=== PATIENT | female | born 2000 | race African-American/Black ===

== ENCOUNTER 2021-08-15 10:28 | Inpatient (IN) | payer MEDICAID, OTHER ==
[~2021-08-15] VITALS: Ht 160 cm; Wt 113.4 kg
[2021-08-15] MEDS: LORazepam 2 MG/ML VIAL IM ONE ×2 (10:36→10:38)
[2021-08-15] MEDS ORDERED: DiphenhydrAMINE HCL 50 MG/ML VIAL IM ONE (10:45)
[2021-08-15] MEDS ORDERED: HALOPERIDOL LACTATE 5 MG/ML VIAL IM ONE (10:45)
[2021-08-15 10:52] LABS: BASOPHILS % (AUTO) 0.5 % (0.0-2.0); EOSINOPHILS % (AUTO) 0.1 % (1.0-6.0); HEMATOCRIT 42.9 % (36-46); HEMOGLOBIN 14.3 g/dL (12.0-16.0); LYMPHOCYTES # (AUTO) 2.1 K/uL (1.0-4.8); LYMPHOCYTES % (AUTO) 22.8 % (22.0-44.0); MEAN CORPUSCULAR HEMOGLOBIN 27.2 pg (26.0-34.0); MEAN CORPUSCULAR HGB CONC 33.4 G/dL (31.0-37.0); MEAN CORPUSCULAR VOLUME 82 fL (80-100); MONOCYTES # (AUTO) 0.8 K/uL (0.1-1.0); MONOCYTES % (AUTO) 8.7 % (2.0-9.0); NEUTROPHILS # (AUTO) 6.2 K/uL (1.8-7.7); NEUTROPHILS % (AUTO) 67.9 % (40.0-70.0); PLATELET COUNT (AUTO) 367 K/uL (150-450); RED BLOOD CELL COUNT(AUTO) 5.25 MIL/uL (4.00-5.20); RED CELL DISTRIBUTION WIDTH 14.2 % (11.5-14.5)
[2021-08-15 11:00] LABS: ANION GAP 15 mmol/L (8-16); CALCIUM, TOTAL 9.3 mg/dL (8.8-10.5); CARBON DIOXIDE 23 mmol/L (22-29); CHLORIDE 102 mmol/L (98-107); CREATININE 1.14 mg/dL (0.60-1.30); GLOMERULAR FILTR. RATE CALC > 60 mL/min (>60); GLUCOSE,RANDOM 141 mg/dL (70-110); POTASSIUM 3.6 mmol/L (3.5-5.1); SODIUM SERUM 140 mmol/L (136-145); UREA NITROGEN, BLOOD 9 mg/dL (7-18)
[2021-08-15 11:07] LABS: SALICYLATE 0.9 mg/dL (2.8-20.0)
[2021-08-15 11:11] LABS: ALANINE AMINOTRANSFERASE 34 U/L (12-78); ALBUMIN 4.1 g/dL (3.4-5.0); ALKALINE PHOSPHATASE 139 U/L (46-116); ASPARTATE AMINOTRANSFERASE 16 U/L (15-37); BILIRUBIN,TOTAL 0.3 mg/dL (0.1-1.0); HCG,QUANTITATIVE 1 mIU/mL (0-6); TOTAL PROTEIN, SERUM 9.2 g/dL (6.4-8.2)
[2021-08-15 11:12] LABS: ACETAMINOPHEN < 2 mcg/mL (10-30)
[2021-08-15 11:37] LABS: COVID AG,FIA SOURCE NASOPHARYNGEAL
[2021-08-15] MEDS ORDERED: TUBERCULIN, PURIFIED PROTEIN DERIVATIVE 5 TU/0.1 ML SYRINGE ID ONE (11:45)
[2021-08-15] MEDS ORDERED: ACETAMINOPHEN 325 MG TABLET PO PRN (11:45)
[2021-08-15] MEDS ORDERED: CYANOCOBALAMIN 1,000 MCG/ML VIAL IM ONE (11:45)
[2021-08-15] MEDS ORDERED: MAG HYDROX/AL HYDROX/SIMETH ES 30 ML SUSPENSION UDCUP PO PRN (11:45)
[2021-08-15] MEDS ORDERED: LOPERAMIDE HCL 2 MG CAPSULE PO PRN (11:45)
[2021-08-15] MEDS ORDERED: PROMETHAZINE HCL 25 MG TABLET PO PRN (11:45)
[2021-08-15] MEDS ORDERED: MAGNESIUM HYDROXIDE SUSPENSION 30 ML UDCUP PO PRN (11:45)
[2021-08-15] MEDS ORDERED: GuaiFENesin/D-METHORPHAN [SUGAR-FREE] 200-20MG/10 ML SYRUP UDCUP PO PRN (11:45)
[2021-08-15] MEDS: LORazepam 2 MG TABLET PO PRN (16:50)
[2021-08-15] MEDS: OLANZapine 5 MG RAPDIS TABLET PO PRN (16:50)
[2021-08-15] MEDS: THIAMINE 100 MG TABLET PO SCH (17:11)
[2021-08-15 18:21] VITALS: BP 118/72
[2021-08-15] MEDS: DIVALPROEX SODIUM 500 MG ER TABLET PO SCH (20:26)
[2021-08-15] MEDS: OLANZapine 5 MG RAPDIS TABLET PO SCH (20:26)
[2021-08-15] MEDS: MELATONIN 5 MG TABLET PO SCH (20:27)
[2021-08-16 01:25] VITALS: BP 110/71
[2021-08-16 08:11] VITALS: BP 120/72
[2021-08-16] MEDS: MULTIVITAMINS WITH MINERALS, THERAPEUTIC TABLET PO SCH (09:31)
[2021-08-16] MEDS: NALTREXONE HCL 50 MG TABLET PO SCH (09:31)
[2021-08-16] MEDS: OMEGA-3/DHA/EPA/FISH OIL 1,000 MG CAPSULE PO SCH (09:31)
[2021-08-16] MEDS: THIAMINE 100 MG TABLET PO SCH ×2 (09:31→16:37)
[2021-08-16] MEDS: FOLIC ACID 1 MG TABLET PO SCH (09:31)
[2021-08-16] MEDS: LORazepam 2 MG TABLET PO PRN ×2 (09:52→18:34)
[2021-08-16] MEDS ORDERED: HALOPERIDOL LACTATE 5 MG/ML VIAL IM ONE (15:45)
[2021-08-16] MEDS ORDERED: LORazepam 2 MG/ML VIAL IM ONE (15:45)
[2021-08-16] MEDS ORDERED: DiphenhydrAMINE HCL 50 MG/ML VIAL IM ONE (15:45)
[2021-08-16 16:09] VITALS: BP 125/88
[2021-08-16] MEDS: OLANZapine 5 MG RAPDIS TABLET PO PRN (18:36)
[2021-08-16] MEDS: DIVALPROEX SODIUM 500 MG ER TABLET PO SCH (20:16)
[2021-08-16] MEDS: OLANZapine 5 MG RAPDIS TABLET PO SCH (20:16)
[2021-08-16] MEDS: MELATONIN 5 MG TABLET PO SCH (20:16)
[2021-08-17 01:43] VITALS: BP 120/76
[2021-08-17 08:06] LABS: HEMOGLOBIN A1C 5.3 % (3.8-5.6)
[2021-08-17 08:13] LABS: CHOL/HDL RATIO 3.6 (3.9-5.7); FREE T4 (FREE THYROXINE) 1.84 ng/dL (0.76-1.46); THYROID STIMULATING HORMONE 0.97 uIU/mL (0.36-3.74)
[2021-08-17] MEDS: NALTREXONE HCL 50 MG TABLET PO SCH (08:15)
[2021-08-17] MEDS: OMEGA-3/DHA/EPA/FISH OIL 1,000 MG CAPSULE PO SCH (08:19)
[2021-08-17] MEDS: MULTIVITAMINS WITH MINERALS, THERAPEUTIC TABLET PO SCH (08:19)
[2021-08-17] MEDS: LITHIUM CARBONATE 300 MG CAPSULE PO SCH ×3 (08:19→17:01)
[2021-08-17] MEDS: FOLIC ACID 1 MG TABLET PO SCH (08:20)
[2021-08-17] MEDS: THIAMINE 100 MG TABLET PO SCH ×2 (08:20→17:01)
[2021-08-17] MEDS: LORazepam 2 MG TABLET PO PRN ×2 (08:21→13:46)
[2021-08-17] MEDS: OLANZapine 5 MG RAPDIS TABLET PO PRN (08:21)
[2021-08-17 16:10] VITALS: BP 133/79
[2021-08-17] MEDS: HydrOXYzine PAMOATE 50 MG CAPSULE PO PRN (17:02)
[2021-08-17] MEDS: MELATONIN 5 MG TABLET PO SCH (20:06)
[2021-08-17] MEDS: OLANZapine 10 MG RAPDIS TABLET PO SCH (20:07)
[2021-08-17] MEDS: DIVALPROEX SODIUM 500 MG ER TABLET PO SCH (20:07)
[2021-08-18] MEDS: MULTIVITAMINS WITH MINERALS, THERAPEUTIC TABLET PO SCH (08:14)
[2021-08-18] MEDS: LORazepam 2 MG TABLET PO PRN ×3 (08:14→16:41)
[2021-08-18] MEDS: NALTREXONE HCL 50 MG TABLET PO SCH (08:15)
[2021-08-18] MEDS: OMEGA-3/DHA/EPA/FISH OIL 1,000 MG CAPSULE PO SCH (08:15)
[2021-08-18] MEDS: FOLIC ACID 1 MG TABLET PO SCH (08:15)
[2021-08-18] MEDS: LITHIUM CARBONATE 300 MG CAPSULE PO SCH ×3 (08:15→16:06)
[2021-08-18] MEDS: THIAMINE 100 MG TABLET PO SCH ×2 (08:15→16:06)
[2021-08-18 08:18] VITALS: BP 118/83
[2021-08-18] MEDS: OLANZapine 5 MG RAPDIS TABLET PO PRN (08:35)
[2021-08-18] MEDS ORDERED: PALIPERIDONE PALMITATE 234 MG/1.5 ML SYRINGE IM ONE (09:00)
[2021-08-18] MEDS ORDERED: LOPERAMIDE HCL 2 MG CAPSULE PO PRN (11:45)
[2021-08-18 16:11] VITALS: BP 130/83
[2021-08-18] MEDS: HydrOXYzine PAMOATE 50 MG CAPSULE PO PRN (18:49)
[2021-08-18] MEDS: MELATONIN 5 MG TABLET PO SCH (20:01)
[2021-08-18] MEDS: DIVALPROEX SODIUM 500 MG ER TABLET PO SCH (20:01)
[2021-08-18] MEDS: OLANZapine 10 MG RAPDIS TABLET PO SCH (20:01)
[2021-08-18] MEDS: ZOLPIDEM TARTRATE 10 MG TABLET PO PRN (22:38)
[2021-08-18 22:41] VITALS: BP 126/80
[2021-08-19 04:33] VITALS: BP 136/88
[2021-08-19] MEDS: LORazepam 2 MG TABLET PO PRN ×4 (05:00→20:18)
[2021-08-19] MEDS: OLANZapine 5 MG RAPDIS TABLET PO PRN ×2 (05:00→09:03)
[2021-08-19] MEDS: MULTIVITAMINS WITH MINERALS, THERAPEUTIC TABLET PO SCH (08:08)
[2021-08-19] MEDS: LITHIUM CARBONATE 300 MG CAPSULE PO SCH ×3 (08:08→17:35)
[2021-08-19] MEDS: NALTREXONE HCL 50 MG TABLET PO SCH (08:08)
[2021-08-19] MEDS: THIAMINE 100 MG TABLET PO SCH ×2 (08:09→17:35)
[2021-08-19] MEDS: OMEGA-3/DHA/EPA/FISH OIL 1,000 MG CAPSULE PO SCH (08:12)
[2021-08-19] MEDS: FOLIC ACID 1 MG TABLET PO SCH (08:12)
[2021-08-19 12:30] VITALS: BP 128/79
[2021-08-19 16:19] VITALS: BP 126/61
[2021-08-19] MEDS: HydrOXYzine PAMOATE 50 MG CAPSULE PO PRN (17:35)
[2021-08-19] MEDS: DIVALPROEX SODIUM 500 MG ER TABLET PO SCH (21:09)
[2021-08-19] MEDS: MELATONIN 5 MG TABLET PO SCH (21:10)
[2021-08-19] MEDS: OLANZapine 10 MG RAPDIS TABLET PO SCH (21:10)
[2021-08-20 00:28] VITALS: BP 130/76
[2021-08-20] MEDS: NALTREXONE HCL 50 MG TABLET PO SCH (08:01)
[2021-08-20] MEDS: THIAMINE 100 MG TABLET PO SCH ×2 (08:02→16:55)
[2021-08-20] MEDS: LORazepam 2 MG TABLET PO PRN ×2 (08:02→12:20)
[2021-08-20] MEDS: MULTIVITAMINS WITH MINERALS, THERAPEUTIC TABLET PO SCH (08:02)
[2021-08-20] MEDS: OMEGA-3/DHA/EPA/FISH OIL 1,000 MG CAPSULE PO SCH (08:03)
[2021-08-20] MEDS: LITHIUM CARBONATE 300 MG CAPSULE PO SCH ×3 (08:06→16:55)
[2021-08-20] MEDS: FOLIC ACID 1 MG TABLET PO SCH (09:08)
[2021-08-20] MEDS: OLANZapine 5 MG RAPDIS TABLET PO PRN (10:01)
[2021-08-20 10:22] VITALS: BP 116/76
[2021-08-20 16:12] VITALS: BP 112/61
[2021-08-20] MEDS: DIVALPROEX SODIUM 500 MG ER TABLET PO SCH (21:31)
[2021-08-20] MEDS: OLANZapine 10 MG RAPDIS TABLET PO SCH (21:31)
[2021-08-20] MEDS: MELATONIN 5 MG TABLET PO SCH (21:32)
[2021-08-20] MEDS: ZOLPIDEM TARTRATE 10 MG TABLET PO PRN (21:32)
[2021-08-21 01:00] VITALS: BP 120/62
[2021-08-21] MEDS: NALTREXONE HCL 50 MG TABLET PO SCH (08:08)
[2021-08-21] MEDS: LITHIUM CARBONATE 300 MG CAPSULE PO SCH ×3 (08:08→16:53)
[2021-08-21] MEDS: THIAMINE 100 MG TABLET PO SCH ×2 (08:08→16:53)
[2021-08-21] MEDS: FOLIC ACID 1 MG TABLET PO SCH (08:08)
[2021-08-21] MEDS: MULTIVITAMINS WITH MINERALS, THERAPEUTIC TABLET PO SCH (08:08)
[2021-08-21] MEDS: OMEGA-3/DHA/EPA/FISH OIL 1,000 MG CAPSULE PO SCH (08:08)
[2021-08-21] MEDS: LORazepam 2 MG TABLET PO PRN ×2 (08:08→16:53)
[2021-08-21] MEDS ORDERED: DiphenhydrAMINE HCL 50 MG/ML VIAL ONE (10:20)
[2021-08-21] MEDS ORDERED: LORazepam 2 MG/ML VIAL ONE (10:20)
[2021-08-21] MEDS ORDERED: DiphenhydrAMINE HCL 50 MG/ML VIAL IM ONE (10:30)
[2021-08-21] MEDS ORDERED: HALOPERIDOL LACTATE 5 MG/ML VIAL IM ONE (10:30)
[2021-08-21] MEDS ORDERED: LORazepam 2 MG/ML VIAL IM ONE (10:30)
[2021-08-21 16:08] VITALS: BP 115/62
[2021-08-21] MEDS: OLANZapine 5 MG RAPDIS TABLET PO PRN (16:53)
[2021-08-21] MEDS: DIVALPROEX SODIUM 500 MG ER TABLET PO SCH (20:24)
[2021-08-21] MEDS: MELATONIN 5 MG TABLET PO SCH (20:24)
[2021-08-21] MEDS: OLANZapine 10 MG RAPDIS TABLET PO SCH (20:24)
[2021-08-21] MEDS: ZOLPIDEM TARTRATE 10 MG TABLET PO PRN (21:55)
[2021-08-22 04:14] VITALS: BP 120/70
[2021-08-22 08:18] VITALS: BP 133/81
[2021-08-22] MEDS ORDERED: DiphenhydrAMINE HCL 50 MG/ML VIAL IM ONE ×2 (08:45→16:30)
[2021-08-22] MEDS ORDERED: HALOPERIDOL LACTATE 5 MG/ML VIAL IM ONE ×2 (08:45→16:30)
[2021-08-22] MEDS ORDERED: LORazepam 2 MG/ML VIAL IM ONE ×2 (08:45→16:30)
[2021-08-22] MEDS ORDERED: PALIPERIDONE PALMITATE 156 MG/ML SYRINGE IM ONE (09:00)
[2021-08-22] MEDS: NALTREXONE HCL 50 MG TABLET PO SCH (09:16)
[2021-08-22] MEDS: OMEGA-3/DHA/EPA/FISH OIL 1,000 MG CAPSULE PO SCH (09:16)
[2021-08-22] MEDS: THIAMINE 100 MG TABLET PO SCH ×2 (09:16→16:02)
[2021-08-22] MEDS: FOLIC ACID 1 MG TABLET PO SCH (09:16)
[2021-08-22] MEDS: LITHIUM CARBONATE 300 MG CAPSULE PO SCH ×5 (09:16→20:10)
[2021-08-22] MEDS: MULTIVITAMINS WITH MINERALS, THERAPEUTIC TABLET PO SCH (09:16)
[2021-08-22] MEDS: LORazepam 2 MG TABLET PO PRN (12:22)
[2021-08-22] MEDS: OLANZapine 5 MG RAPDIS TABLET PO PRN (12:23)
[2021-08-22 16:09] VITALS: BP 119/72
[2021-08-22] MEDS ORDERED: DiphenhydrAMINE HCL 50 MG/ML VIAL ONE (16:21)
[2021-08-22] MEDS ORDERED: LORazepam 2 MG/ML VIAL ONE (16:21)
[2021-08-22] MEDS ORDERED: HALOPERIDOL LACTATE 5 MG/ML VIAL ONE (16:21)
[2021-08-22] MEDS: MELATONIN 5 MG TABLET PO SCH (20:10)
[2021-08-22] MEDS: DIVALPROEX SODIUM 500 MG ER TABLET PO SCH (20:10)
[2021-08-22] MEDS: OLANZapine 10 MG RAPDIS TABLET PO SCH (20:10)
[2021-08-23 02:03] VITALS: BP 112/68
[2021-08-23 07:36] LABS: COVID AG,FIA SOURCE NASOPHARYNGEAL
[2021-08-23] MEDS: FOLIC ACID 1 MG TABLET PO SCH (08:01)
[2021-08-23] MEDS: OMEGA-3/DHA/EPA/FISH OIL 1,000 MG CAPSULE PO SCH (08:01)
[2021-08-23] MEDS: THIAMINE 100 MG TABLET PO SCH ×2 (08:01→16:15)
[2021-08-23] MEDS: NALTREXONE HCL 50 MG TABLET PO SCH (08:02)
[2021-08-23] MEDS: MULTIVITAMINS WITH MINERALS, THERAPEUTIC TABLET PO SCH (08:02)
[2021-08-23] MEDS: LORazepam 2 MG TABLET PO PRN ×2 (08:02→12:13)
[2021-08-23] MEDS: LITHIUM CARBONATE 300 MG CAPSULE PO SCH ×4 (08:02→20:10)
[2021-08-23] MEDS: OLANZapine 5 MG RAPDIS TABLET PO PRN ×2 (08:02→12:12)
[2021-08-23 08:09] VITALS: BP 119/80
[2021-08-23 16:06] VITALS: BP 105/62
[2021-08-23] MEDS: DIVALPROEX SODIUM 500 MG ER TABLET PO SCH (20:10)
[2021-08-23] MEDS: MELATONIN 5 MG TABLET PO SCH (20:10)
[2021-08-23] MEDS: OLANZapine 10 MG RAPDIS TABLET PO SCH (20:10)
[2021-08-24 02:07] VITALS: BP 122/75
[2021-08-24] MEDS: LITHIUM CARBONATE 300 MG CAPSULE PO SCH ×4 (08:09→20:38)
[2021-08-24] MEDS: MULTIVITAMINS WITH MINERALS, THERAPEUTIC TABLET PO SCH (08:09)
[2021-08-24] MEDS: OMEGA-3/DHA/EPA/FISH OIL 1,000 MG CAPSULE PO SCH (08:09)
[2021-08-24] MEDS: FOLIC ACID 1 MG TABLET PO SCH (08:09)
[2021-08-24] MEDS: LORazepam 2 MG TABLET PO PRN ×2 (08:09→12:54)
[2021-08-24] MEDS: THIAMINE 100 MG TABLET PO SCH ×2 (08:09→16:58)
[2021-08-24] MEDS: NALTREXONE HCL 50 MG TABLET PO SCH (08:09)
[2021-08-24 08:19] VITALS: BP 132/72
[2021-08-24] MEDS: OLANZapine 5 MG RAPDIS TABLET PO PRN (08:28)
[2021-08-24 16:08] VITALS: BP 121/67
[2021-08-24] MEDS: MELATONIN 5 MG TABLET PO SCH (20:38)
[2021-08-24] MEDS: DIVALPROEX SODIUM 500 MG ER TABLET PO SCH (20:38)
[2021-08-24] MEDS: OLANZapine 10 MG RAPDIS TABLET PO SCH (20:38)
[2021-08-25 00:40] VITALS: BP 132/90
[2021-08-25] MEDS: ZOLPIDEM TARTRATE 10 MG TABLET PO PRN (02:15)
[2021-08-25] MEDS: THIAMINE 100 MG TABLET PO SCH (08:28)
[2021-08-25] MEDS: NALTREXONE HCL 50 MG TABLET PO SCH (08:28)
[2021-08-25] MEDS: MULTIVITAMINS WITH MINERALS, THERAPEUTIC TABLET PO SCH (08:29)
[2021-08-25] MEDS: LORazepam 2 MG TABLET PO PRN ×2 (08:29→12:54)
[2021-08-25] MEDS: OLANZapine 5 MG RAPDIS TABLET PO PRN ×2 (08:29→16:08)
[2021-08-25] MEDS: LITHIUM CARBONATE 300 MG CAPSULE PO SCH ×3 (08:29→16:06)
[2021-08-25] MEDS: FOLIC ACID 1 MG TABLET PO SCH (08:29)
[2021-08-25] MEDS: OMEGA-3/DHA/EPA/FISH OIL 1,000 MG CAPSULE PO SCH (08:29)
[2021-08-25 08:30] VITALS: BP 132/71
[2021-08-25] MEDS ORDERED: MELA5TAB40 PO (13:25)
[2021-08-25] MEDS ORDERED: DIVA-80 PO (13:25)
[2021-08-25] MEDS ORDERED: NALT50TA PO (13:25)
[2021-08-25] MEDS ORDERED: OLAN10TA26 PO (13:25)
[2021-08-25] MEDS ORDERED: OMEG-135 PO (13:25)
[2021-08-25] MEDS ORDERED: LITH300C3 PO (13:25)
[2021-08-25 16:23] VITALS: BP 137/80
[2021-08-25] MEDS: DIVALPROEX SODIUM 500 MG ER TABLET PO SCH (20:19)
[2021-08-25] MEDS: MELATONIN 5 MG TABLET PO SCH (20:19)
[2021-08-25] MEDS: OLANZapine 10 MG RAPDIS TABLET PO SCH (20:19)
[2021-08-26 01:10] VITALS: BP 124/66
[2021-08-26] MEDS: MULTIVITAMINS WITH MINERALS, THERAPEUTIC TABLET PO SCH (08:06)
[2021-08-26] MEDS: NALTREXONE HCL 50 MG TABLET PO SCH (08:06)
[2021-08-26] MEDS: OMEGA-3/DHA/EPA/FISH OIL 1,000 MG CAPSULE PO SCH (08:06)
[2021-08-26] MEDS: LITHIUM CARBONATE 300 MG CAPSULE PO SCH ×2 (08:07→12:16)
[2021-08-26] MEDS: LORazepam 2 MG TABLET PO PRN (08:07)
[2021-08-26 08:20] VITALS: BP 123/65
== END 2021-08-26 16:00 | disposition home or self-care (01) | DRG 750 ==
LOC: EMS 10:28 → B3A 12:45
PROVIDERS: ADMIT Psychiatry & Neurology Psychiatry; ATTEND Psychiatry & Neurology Psychiatry
DX: F25.0 Schizoaffective disorder, bipolar type (principal); Z91.14 Patient's other noncompliance with medication regimen; F31.9 Bipolar disorder, unspecified; G47.00 Insomnia, unspecified; Z20.822 Contact with and (suspected) exposure to COVID-19; Z55.9 Problems related to education and literacy, unspecified; Z59.9 Problem related to housing and economic circumstances, unspecified; Z63.9 Problem related to primary support group, unspecified; Z65.3 Problems related to other legal circumstances
CPT/HCPCS: 80053; 80061; 80164; 80178; 83036; 84439; 84443; 84702; 85025; 86592; 99291; G0480; G0481; J1200; J1630; J2060; J3420; Q9967

== ENCOUNTER 2022-04-08 23:54 | Emergency (ER) | payer MEDICAID, OTHER ==
[~2022-04-08] VITALS: Ht 160 cm; Wt 122.3 kg
[~2022-04-08 23:54] MED LIST: DIVA-80 PO; LITH300C3 PO; MELA5TAB40 PO; NALT50TA PO; OLAN10TA26 PO; OMEG-108 PO
[2022-04-09 01:16] VITALS: BP 139/72
== END 2022-04-09 01:22 | disposition home or self-care (01) ==
LOC: EMS 23:59
DX: Z32.02 Encounter for pregnancy test, result negative (principal)
CPT/HCPCS: 84703; 99283

== ENCOUNTER 2024-10-19 12:41 | Inpatient (IN) | payer MEDICAID, OTHER ==
[~2024-10-19] VITALS: Ht 167.6 cm; Wt 119.0 kg
[~2024-10-19 12:41] MED LIST changes: +DIVA-153 PO; -DIVA-80 PO; -NALT50TA PO; +NALT50TA6 PO; -OMEG-108 PO; +OMEG-135 PO
[2024-10-19] MEDS: HALOPERIDOL LACTATE 5 MG/ML VIAL IM ONE (14:25)
[2024-10-19] MEDS: DiphenhydrAMINE HCL 50 MG/ML VIAL IM ONE (14:25)
[2024-10-19] MEDS: LORazepam 2 MG/ML VIAL IM ONE (14:26)
[2024-10-19 15:31] LABS: BASOPHILS % (AUTO) 0.4 % (0.0-2.0); EOSINOPHILS % (AUTO) 0.1 % (1.0-6.0); HEMOGLOBIN 13.5 g/dL (12.0-16.0); LYMPHOCYTES % (AUTO) 26.4 % (22.0-44.0); MEAN CORPUSCULAR HEMOGLOBIN 27.8 pg (26.0-34.0); MEAN CORPUSCULAR HGB CONC 33.7 G/dL (31.0-37.0); MEAN CORPUSCULAR VOLUME 82 fL (80-100); MONOCYTES # (AUTO) 0.6 K/uL (0.1-1.0); NEUTROPHILS % (AUTO) 65.1 % (40.0-70.0); PLATELET COUNT (AUTO) 313 K/uL (150-450); RED BLOOD CELL COUNT(AUTO) 4.87 MIL/uL (4.00-5.20); RED CELL DISTRIBUTION WIDTH 13.6 % (11.5-14.5); WHITE BLOOD COUNT (AUTO) 7.7 K/uL (4.5-11.0)
[2024-10-19 15:42] LABS: ANION GAP 12 mmol/L (8-16); CALCIUM, TOTAL 8.7 mg/dL (8.8-10.5); CARBON DIOXIDE 26 mmol/L (22-29); CHLORIDE 102 mmol/L (98-107); CREATININE 0.79 mg/dL (0.60-1.30); GLOMERULAR FILTR. RATE CALC > 60 mL/min (>60); GLUCOSE,RANDOM 100 mg/dL (70-110); POTASSIUM 3.1 mmol/L (3.5-5.1); SODIUM SERUM 140 mmol/L (136-145); UREA NITROGEN, BLOOD 7 mg/dL (7-18)
[2024-10-19 15:49] LABS: COVID AG,FIA SOURCE NASAL SWAB
[2024-10-19 15:55] LABS: ALCOHOL, BLOOD (SERUM) < 3 mg/dL (0-10)
[2024-10-19 16:09] LABS: SARS-COV2 (COVID) ANTIGEN,FIA Negative (Negative)
[2024-10-19] MEDS ORDERED: MAG HYDROX/ALUMINUM HYD/SIMETH ES 30 ML SUSPENSION UDCUP PO PRN (18:45)
[2024-10-19] MEDS ORDERED: MAGNESIUM HYDROXIDE SUSPENSION 30 ML UDCUP PO PRN (18:45)
[2024-10-19] MEDS ORDERED: LOPERAMIDE HCL 2 MG CAPSULE PO PRN (18:45)
[2024-10-19 19:50] LABS: ALCOHOL, URINE DRUG SCREEN NEGATIVE (NEGATIVE); AMPHET/METH SCREEN,URINE NEGATIVE (NEGATIVE); BARBITURATE SCREEN, URINE NEGATIVE (NEGATIVE); BENZODIAZEPINES SCREEN,URINE NEGATIVE (NEGATIVE); CANNABINOID SCREEN,URINE NEGATIVE (NEGATIVE); COCAINE SCREEN,URINE NEGATIVE (NEGATIVE); METHADONE SCREEN, URINE NEGATIVE (NEGATIVE); OPIATE SCREEN,URINE NEGATIVE (NEGATIVE); PHENCYCLIDINE SCREEN,URINE NEGATIVE (NEGATIVE)
[2024-10-19 19:55] LABS: APPEARANCE,URINE HAZY (CLEAR); BILIRUBIN,URINE NEGATIVE (NEGATIVE); COLOR,URINE YELLOW (YELLOW); GLUCOSE, URINE (UA) NEGATIVE (NEGATIVE); LEUKOCYTE ESTERASE ,URINE SMALL (NEGATIVE); NITRATE,URINE NEGATIVE (NEGATIVE); OCCULT BLOOD,URINE LARGE (NEGATIVE); PROTEIN,URINE 30-70 mg/dL (NEGATIVE); SPECIFIC GRAVITIY, URINE 1.024 (1.003-1.030); UROBILINOGEN,URINE <=1.0 mg/dL (<=1.0)
[2024-10-19 20:01] LABS: RBC,URINE 51-100 /HPF (0-2)
[2024-10-19 20:02] LABS: BACTERIA,URINE Few /HPF (None Seen); SQUAMOUS EPITHELIAL CELL,UR Few /LPF (None Seen)
[2024-10-19] MEDS: POTASSIUM CHLORIDE 20 MEQ ER TABLET PO ONE (23:20)
[2024-10-20] MEDS: HALOPERIDOL LACTATE 5 MG/ML VIAL IM ONE (01:25)
[2024-10-20] MEDS: DiphenhydrAMINE HCL 50 MG/ML VIAL IM ONE (01:25)
[2024-10-20] MEDS: LORazepam 2 MG/ML VIAL IM ONE (01:25)
[2024-10-20 02:49] VITALS: BP 109/70; PULSE 88; RESP 19; TEMP 97.7; O2SAT 97
[2024-10-20 08:23] VITALS: RESP 18
[2024-10-20] MEDS: HALOPERIDOL 5 MG TABLET PO PRN (08:59)
[2024-10-20] MEDS: LORazepam 2 MG TABLET PO PRN (08:59)
[2024-10-20] MEDS: DIVALPROEX SODIUM 500 MG ER TABLET PO SCH (12:33)
[2024-10-20] MEDS: LITHIUM CARBONATE 300 MG CAPSULE PO SCH (12:33)
[2024-10-20] MEDS: NICOTINE 21 MG/24 HOUR PATCH TD PRN (13:51)
[2024-10-20] MEDS: OLANZapine 10 MG RAPDIS TABLET PO SCH (20:34)
[2024-10-20 20:37] VITALS: RESP 20; O2SAT 100
[2024-10-21] VITALS (7 sets, daily range): BP systolic 135–143; BP diastolic 85–89; PULSE 100; RESP 16–18; TEMP 89.6–97.1; O2SAT 95–98
[2024-10-21] MEDS ORDERED: ChlorproMAZINE HCL 50 MG/2 ML AMP ONE (07:34)
[2024-10-21] MEDS ORDERED: DiphenhydrAMINE HCL 50 MG/ML VIAL ONE (07:34)
[2024-10-21] MEDS ORDERED: LORazepam 2 MG/ML VIAL ONE (07:34)
[2024-10-21] MEDS: DiphenhydrAMINE HCL 50 MG/ML VIAL IM ONE (08:18)
[2024-10-21] MEDS: LORazepam 2 MG/ML VIAL IM ONE (08:19)
[2024-10-21] MEDS: ChlorproMAZINE HCL 50 MG/2 ML AMP IM ONE (08:19)
[2024-10-21] MEDS: ACETAMINOPHEN 325 MG TABLET PO PRN (10:06)
[2024-10-21] MEDS: NITROFURANTOIN MONOHYD/M-CRYST 100 MG CAPSULE [MACROBID] PO SCH (16:24)
[2024-10-21] MEDS: ZOLPIDEM TARTRATE 10 MG TABLET PO PRN (21:47)
[2024-10-22 08:52] VITALS: BP 148/98; PULSE 100; RESP 17; TEMP 97.2; O2SAT 96
[2024-10-22 23:23] VITALS: RESP 18
[2024-10-23] MEDS ORDERED: ChlorproMAZINE HCL 50 MG/2 ML AMP ONE ×2 (00:16→00:17)
[2024-10-23] MEDS ORDERED: DiphenhydrAMINE HCL 50 MG/ML VIAL ONE (00:17)
[2024-10-23] MEDS ORDERED: LORazepam 2 MG/ML VIAL ONE (00:17)
[2024-10-23] MEDS: DiphenhydrAMINE HCL 50 MG/ML VIAL IM ONE ×2 (00:35→13:11)
[2024-10-23] MEDS: LORazepam 2 MG/ML VIAL IM ONE ×2 (00:35→13:11)
[2024-10-23] MEDS: ChlorproMAZINE HCL 50 MG/2 ML AMP IM ONE ×2 (00:36→13:11)
[2024-10-23 08:12] VITALS: BP 140/87; PULSE 79; RESP 18; TEMP 98; O2SAT 99
[2024-10-23] MEDS ORDERED: HALOPERIDOL LACTATE 5 MG/ML VIAL ONE (14:40)
[2024-10-23] MEDS: HALOPERIDOL LACTATE 5 MG/ML VIAL IM ONE (14:50)
[2024-10-23 17:13] VITALS: BP 136/71; PULSE 100; RESP 16; TEMP 97.4; O2SAT 97
[2024-10-24] MEDS ORDERED: LORazepam 2 MG/ML VIAL ONE (05:59)
[2024-10-24] MEDS ORDERED: HALOPERIDOL LACTATE 5 MG/ML VIAL ONE (05:59)
[2024-10-24] MEDS ORDERED: DiphenhydrAMINE HCL 50 MG/ML VIAL ONE (05:59)
[2024-10-24] MEDS: LORazepam 2 MG/ML VIAL IM ONE (06:11)
[2024-10-24] MEDS: HALOPERIDOL LACTATE 5 MG/ML VIAL IM ONE (06:11)
[2024-10-24] MEDS: DiphenhydrAMINE HCL 50 MG/ML VIAL IM ONE (06:11)
[2024-10-24 08:18] VITALS: BP 130/77; PULSE 86; RESP 18; TEMP 98; O2SAT 98
[2024-10-24 20:34] VITALS: BP 126/96; PULSE 100; RESP 18; TEMP 97.1; O2SAT 100
[2024-10-25 08:10] VITALS: BP 136/83; PULSE 90; RESP 18; TEMP 97.6; O2SAT 98
[2024-10-25] MEDS: LORazepam 2 MG/ML VIAL IM ONE ×3 (08:50→23:25)
[2024-10-25] MEDS: HALOPERIDOL LACTATE 5 MG/ML VIAL IM ONE (08:51)
[2024-10-25] MEDS: DiphenhydrAMINE HCL 50 MG/ML VIAL IM ONE ×3 (08:52→23:26)
[2024-10-25 09:36] LABS: LITHIUM 0.73 mmol/L (0.60-1.20)
[2024-10-25] MEDS ORDERED: ChlorproMAZINE HCL 50 MG/2 ML AMP ONE ×2 (09:54→09:55)
[2024-10-25] MEDS: ChlorproMAZINE HCL 50 MG/2 ML AMP IM ONE (10:18)
[2024-10-25] MEDS: FluPHENAZine HCL 2.5 MG/ML INJ IM ONE (23:26)
[2024-10-26 08:44] VITALS: BP 110/64; PULSE 120; RESP 16; O2SAT 96
[2024-10-26 20:10] VITALS: RESP 18
[2024-10-27 08:26] VITALS: BP 124/82; PULSE 100; RESP 16; TEMP 97; O2SAT 98
[2024-10-27] MEDS: OLANZapine 10 MG TABLET PO SCH (09:47)
[2024-10-28 00:22] VITALS: RESP 18
[2024-10-28 08:36] VITALS: BP 126/79; PULSE 83; RESP 18; TEMP 97.6; O2SAT 98
[2024-10-28 20:13] VITALS: BP 128/72; PULSE 110; RESP 18; TEMP 97.6; O2SAT 99
[2024-10-29 08:03] VITALS: BP 136/89; RESP 17; TEMP 97.1; O2SAT 95
[2024-10-29 23:21] VITALS: BP 132/82; PULSE 84; RESP 18; TEMP 97; O2SAT 98
[2024-10-30 08:29] VITALS: BP 133/84; PULSE 100; RESP 16; TEMP 97.6; O2SAT 97
[2024-10-30 09:06] VITALS: RESP 17
[2024-10-30 10:06] VITALS: RESP 16
[2024-10-30 16:05] VITALS: RESP 17
[2024-10-30 17:05] VITALS: RESP 18
[2024-10-30 20:18] VITALS: BP 134/80; PULSE 100; RESP 18; TEMP 97.4; O2SAT 100
[2024-10-31 08:24] VITALS: BP 133/74; PULSE 128; RESP 18; TEMP 98.2; O2SAT 97
[2024-10-31 11:31] VITALS: PULSE 120
[2024-10-31 19:48] VITALS: BP 152/97; PULSE 92; RESP 16; TEMP 98.1; O2SAT 97
[2024-10-31 20:00] VITALS: RESP 16
[2024-11-01 03:04] VITALS: RESP 20
[2024-11-01 03:05] VITALS: RESP 20
[2024-11-01 04:00] VITALS: RESP 18
[2024-11-01 08:39] VITALS: BP 141/82; PULSE 88; RESP 17; TEMP 98; O2SAT 97
[2024-11-01 08:47] LABS: APPEARANCE,URINE CLEAR (CLEAR); BILIRUBIN,URINE NEGATIVE (NEGATIVE); COLOR,URINE COLORLESS (YELLOW); GLUCOSE, URINE (UA) NEGATIVE (NEGATIVE); KETONES,URINE NEGATIVE (NEGATIVE); LEUKOCYTE ESTERASE ,URINE NEGATIVE (NEGATIVE); OCCULT BLOOD,URINE NEGATIVE (NEGATIVE); PH,URINE 7.5 (5.0-8.0); PH,URINE DRUG SCREEN 7.5 (5.0-8.0); PROTEIN,URINE NEGATIVE (NEGATIVE); SPECIFIC GRAVITIY, URINE 1.005 (1.003-1.030); UROBILINOGEN,URINE <=1.0 mg/dL (<=1.0)
[2024-11-01 08:52] LABS: AMPHET/METH SCREEN,URINE NEGATIVE (NEGATIVE); BARBITURATE SCREEN, URINE NEGATIVE (NEGATIVE); BENZODIAZEPINES SCREEN,URINE NEGATIVE (NEGATIVE); CANNABINOID SCREEN,URINE NEGATIVE (NEGATIVE); COCAINE SCREEN,URINE NEGATIVE (NEGATIVE); METHADONE SCREEN, URINE NEGATIVE (NEGATIVE); OPIATE SCREEN,URINE NEGATIVE (NEGATIVE); PHENCYCLIDINE SCREEN,URINE NEGATIVE (NEGATIVE)
[2024-11-01 08:54] LABS: ALCOHOL, URINE DRUG SCREEN NEGATIVE (NEGATIVE)
[2024-11-01 09:01] LABS: RBC,URINE None Seen /HPF (0-2); WBC,URINE None Seen /HPF (0-5)
[2024-11-01 09:02] LABS: BACTERIA,URINE None Seen /HPF (None Seen)
[2024-11-01 09:06] LABS: NITRATE,URINE NEGATIVE (NEGATIVE)
[2024-11-01 20:19] VITALS: BP 134/86; PULSE 82; RESP 17; TEMP 97.8; O2SAT 97
[2024-11-02 08:05] VITALS: BP 115/67; PULSE 125; RESP 16; TEMP 97.6; O2SAT 95
[2024-11-02 20:06] VITALS: BP 151/77; RESP 16; TEMP 96.9; O2SAT 98
[2024-11-03 09:16] VITALS: BP 130/89; PULSE 88; RESP 16; TEMP 98; O2SAT 100
[2024-11-03 20:35] VITALS: BP 140/92; PULSE 88; RESP 16; TEMP 97.9; O2SAT 99
[2024-11-04 05:32] VITALS: RESP 20
[2024-11-04 06:30] VITALS: RESP 18
[2024-11-04 08:45] VITALS: BP 137/80; PULSE 110; RESP 18; TEMP 97.8
[2024-11-04 20:05] VITALS: BP 129/81; PULSE 96; RESP 18; TEMP 97.3; O2SAT 96
[2024-11-05 08:15] VITALS: BP 132/79; PULSE 120; RESP 16; TEMP 98.1; O2SAT 97
[2024-11-05] MEDS ORDERED: DIVA-153 PO (10:25)
[2024-11-05] MEDS ORDERED: LITH300C3 PO (10:25)
[2024-11-05] MEDS ORDERED: OLAN10TA26 PO ×2 (10:25→13:27)
== END 2024-11-05 11:45 | disposition home or self-care (01) | DRG 750 ==
LOC: EMS 12:41 → B3A 10-20 00:19
PROVIDERS: ADMIT Psychiatry & Neurology Psychiatry; ATTEND Psychiatry & Neurology Psychiatry
PROC: GZHZZZZ Group Psychotherapy (ICD-10-PCS; principal; 2024-10-20)
PROC: GZ52ZZZ Individual Psychotherapy, Cognitive (ICD-10-PCS; 2024-10-21)
DX: F25.0 Schizoaffective disorder, bipolar type (principal); E78.5 Hyperlipidemia, unspecified; E87.6 Hypokalemia; Z20.822 Contact with and (suspected) exposure to COVID-19; G47.00 Insomnia, unspecified; F41.9 Anxiety disorder, unspecified; Z79.899 Other long term (current) drug therapy; Z91.51 Personal history of suicidal behavior
CPT/HCPCS: 70450; 80048; 80164; 80178; 80307; 81001; 84132; 85025; 87077; 87086; 87186; 99291; G0480; J1200; J1630; J2060; J3230; J3490